=== PATIENT | male | born 1940 | race Caucasian/White ===

== ENCOUNTER 2017-11-26 09:29 | Day surgery (SDC) | payer OTHER, MEDICARE ==
[2017-11-25 12:04] VITALS: BMI 23.8
--- NOTE | 2017-11-25 15:08 | HP ---
- Patient Scheduled date of Surgery: 11/26/17 Scheduled Surgical Procedure: Phacoemulsification and cataract extraction with PCIOL Affected Eye: Right Chief Complaint (Indication for surgery): Decreased vision affecting ADLs - Ocular History Other Eye History: Other (blepharitis) Eye Medications: vigamox Previous Eye Surgery: s/p ce/pciol OS, +18.0d hoya - Medical History Illnesses: Cardiac Disorders (Chest pain, SOB, NE, Valve disease) (s/p CABG, BPH ), Hypertension, Hypercholesterolemia, Other (Hydrocephalus s/p shunt, s/p spinal fusion s/p hip replacement , arthritis of neck.) Current Medications: Ambulatory Orders Aspirin 81 mg PO DAILY 11/25/17 Atorvastatin Ca [Lipitor] 10 mg PO HS 11/25/17 Cholecalciferol (Vitamin D3) [Vitamin D3 -] 400 unit PO DAILY 11/25/17 Ferrous Sulfate [Iron] 325 mg PO DAILY 11/25/17 [place] 3 500 Softgel 300 mg PO DAILY 11/25/17 Pumpkin Seed Oil/Saw [place] [Saw [place] 160 mg Softgel] 1,000 mg PO HS 11/25 Saw [place] 450 mg PO DAILY 11/25/17 Ubidecarenone [Coq10] 100 mg PO DAILY 11/25/17 Allergies/Adverse Reactions: Allergies Allergy/AdvReac Type Severity Reaction Status Date / Time codeine Allergy Rash Verified 11/25/17 11:43 tramadol AdvReac Severe Rash Verified 11/25/17 11:43 Ocular Examination - Best Corrected Visual Acuity Distance: Right eye: 20/40 Distance: Left eye: 20/20 - External/Slit Lamp Examination Abnormalities: decreased TBUT - Intraocular Pressure Intraocular Pressure - Right eye: 12 Intraocular Pressure-Left eye: 14 - Lens Lens: 3+ NS trace PSC - Vitreous/Retina Vitreous/Retina: C:D 0.2 m/v/p wnl - Special Examination M - Right eye: -1.00-1.00 x 090 M - Left eye: +0.75-0.50 x 050 K - Right eye: 42.5/43 x 100 K - Left eye: 41.75/42 x 120 AL - Right eye: 24.64 AL - Left eye: 24.89 IOL bag: +18.0 D AUOOTO IOL sulcus: +17.5 d [id number] IOL AC: +15.0 d [id number] - Impression Impression: Cataract Right Eye - Plan Plan: Phacoemulsification and cataract extraction - IOL Right eye Post-hospital care will be provided in office on: 11/27/17
--- NOTE | 2017-11-26 07:17 | HP ---
History & Physical Update - History History: No Change - Physical Physical: No Change - Assessment Assessment: No Change - Plan Plan: No Change (Reviewed Jeremy Hart's H and P from 11/20/17 no change)
[~2017-11-26 09:29] MED LIST: ACETAMINOPHEN 325 MG TABLET (FP) PO PRN; BSS (NA/CA/MG/K) BALANCED SALT SOLUTION OPHTH SOLN 15 ML BOTTLE OD ONE; CHONDROITIN SU A/HYALUR SOD 1 KIT IO ONE; CIPROFLOXACIN HCL 0.3% OPHTH 2.5ML BOTTLE OP SCH; EPINEPHrine/PF 1 MG/1 ML (1:1,000) AMPULE SQ ONE; KETOROLAC TROMETHAMINE 0.5% 5 ML BOTTLE OPTHALMIC OP SCH; LIDOCAINE HCL 1% PRESERVATIVE FREE - 30ML VIAL IO ONE; LIDOCAINE HCL 2% JELLY (5 ML/TUBE) TP ONE; PHENYLEPHRINE 2.5% OPHTH SOLN 15 ML BOTTLE OP SCH; POVIDONE-IODINE 5% OPHTHALMIC PREP 30 ML SOLUTION OD ONE; TOBRAMYCIN/DEXAMETHASONE OPHTH. OINTMENT 1 TUBE OD ONE; TROPICAMIDE 1% OPHTH SOLN 15 ML BOTTLE OP SCH
[2017-11-26] MEDS ORDERED: TROPICAMIDE 1% OPHTH SOLN 15 ML BOTTLE ONE (09:55)
[2017-11-26] MEDS ORDERED: PHENYLEPHRINE 2.5% OPHTH SOLN 15 ML BOTTLE ONE (09:55)
[2017-11-26] MEDS ORDERED: FLURBIPROFEN 0.03% OPHTH SOLN 2.5 ML BOTTLE ONE (09:55)
[2017-11-26] MEDS ORDERED: CIPROFLOXACIN 0.3% EYE DROPS 5 ML BOTTLE ONE (09:55)
[2017-11-26 10:15] VITALS: TEMP 98.3
[2017-11-26] MEDS ORDERED: TOBRAMYCIN/DEXAMETHASONE OPHTH. OINTMENT 1 TUBE ONE (10:28)
[2017-11-26] MEDS ORDERED: EPINEPHrine/PF 1 MG/1 ML (1:1,000) AMPULE ONE (10:39)
[2017-11-26] MEDS ORDERED: MIDAZOLAM HCL 2 MG/2 ML SINGLE DOSE VIAL ONE (10:49)
[2017-11-26] MEDS ORDERED: LIDOCAINE HCL 2% JELLY (5 ML/TUBE) TP ONE (10:52)
[2017-11-26] MEDS ORDERED: POVIDONE-IODINE 5% OPHTHALMIC PREP 30 ML SOLUTION OD ONE (10:55)
[2017-11-26] MEDS ORDERED: EPINEPHrine/PF 1 MG/1 ML (1:1,000) AMPULE SQ ONE ×2 (11:00→11:07)
[2017-11-26] MEDS ORDERED: BSS (NA/CA/MG/K) BALANCED SALT SOLUTION OPHTH SOLN 15 ML BOTTLE OD ONE (11:00)
[2017-11-26] MEDS ORDERED: LIDOCAINE HCL 1% PRESERVATIVE FREE - 30ML VIAL IO ONE (11:00)
[2017-11-26] MEDS ORDERED: CHONDROITIN SU A/HYALUR SOD 1 KIT IO ONE ×2 (11:00)
[2017-11-26] MEDS ORDERED: TETRACAINE 0.5% OPHTH SOLN 2 ML BOTTLE OD ONE (11:38)
[2017-11-26] MEDS ORDERED: TOBRAMYCIN/DEXAMETHASONE OPHTH. OINTMENT 1 TUBE OD ONE (11:41)
--- NOTE | 2017-11-26 11:46 | OP ---
Ophthalmology Operative Note Pre-Operative Diagnosis: Cataract (post op diagnosis : mature cataract) Affected Eye: Right Operation: Phacoemulsification and cataract extraction with PCIOL Findings: Mature cataract Post-Operative Diagnosis: Other (mature cataract) Nursing Assistant: None Anesthesiologist: Gregoria Peña MD Anesthesia: Topical Specimens Removed: none Estimated blood loss: <1 cc Drains & Tubes with Location: none Operative Report Dictated: Yes
--- NOTE | 2017-11-26 12:05 | OP ---
DATE OF OPERATION: 11/26/2017 PREOPERATIVE DIAGNOSIS: Nuclear sclerotic cataract, right eye. POSTOPERATIVE DIAGNOSIS: Mature cataract, right eye. PROCEDURE: Phacoemulsification and cataract extraction with insertion of posterior chamber intraocular lens, right eye. SURGEON: Davina Escobar MD INSTRUCTOR PILOT: None. ANESTHESIA: Topical. ANESTHESIOLOGIST: Gregoria Peña MD OPERATIVE PROCEDURE: The patient received 2% lidocaine gel in the holding area and was then brought to the operating room and prepped and draped in the usual sterile fashion so as to expose only the right eye. Ophthalmic Betadine was instilled into the inferior fornix, and the lashes were taped out of the surgical field. An eyelid speculum was placed into the right eye. A paracentesis was made in superior clear cornea at the limbus. Nonpreserved lidocaine 1%, 0.5 mL, was injected into the anterior chamber and 1 mL of dilute epinephrine 1:10,000 was injected into the anterior chamber. Viscoelastic material was instilled into the anterior chamber via the paracentesis. A 2.4-mm keratome was then used to create the main incision in temporal clear cornea at the limbus. A continuous curvilinear capsulorrhexis was performed using a cystotome and Utrata forceps. Hydrodissection of the lens cortex was performed using BSS on a cannula until the nucleus was noted to be freely rotating. The phacoemulsification tip was inserted via the main wound and used to sculpt 2 perpendicular grooves into the lens nucleus. The nucleus was cracked into 4 quadrants using 2 instruments. Each quadrant was lifted out of the capsule into the iris plane and individually phacoemulcified. The remaining cortical material was then aspirated using the irrigation and aspiration port. The capsular bag was inflated using Provisc, and a preloaded AcrySof lens, model [id number], power +18.5 diopters was injected into the capsular bag. It was centered using a [place] hook. The residual viscoelastic material was removed from the anterior chamber using irrigation and aspiration. The wound edges were hydrated using BSS. The wound was tested for leakage. It was found to be watertight. TobraDex ointment was placed in the eye, and the speculum was removed from the eye, and the eyelid was closed. Sterile dressing and shield were placed over the eye, and the patient was transferred to the recovery room in stable condition, told to follow up in 1 day. DAVINA ESCOBAR M.D. [id number]
[2017-11-26] MEDS ORDERED: CHONDROITIN SU A/HYALUR SOD 1 KIT ONE (12:08)
[2017-11-26] MEDS ORDERED: ACETAMINOPHEN 325 MG TABLET (FP) ONE (12:11)
[2017-11-26 15:00] VITALS: BP 148/76; PULSE 74
== END 2017-11-26 13:00 | disposition home or self-care (01) ==
LOC: JASU-SURG 09:29
PROVIDERS: ATTEND Ophthalmology
PROC: 08RJ3JZ Replacement of Right Lens with Synthetic Substitute, Percutaneous Approach (ICD-10-PCS; principal; 2017-11-26 10:30)
DX: H25.091 Other age-related incipient cataract, right eye (principal)